=== PATIENT | female | born 1935 | race African-American/Black ===

== ENCOUNTER 2018-01-12 10:06 | Inpatient (IN) | payer MEDICARE ==
[~2018-01-12] VITALS: Ht 188 cm; Wt 83.9 kg
[2018-01-12] MEDS ORDERED: METO1TAB41 PO (10:21)
[2018-01-12] MEDS ORDERED: SODIUM CHLORIDE 0.9% 1,000 ML IV ONE (11:30)
[2018-01-12 11:37] LABS: CLARITY URINE CLEAR (CLEAR); COLOR URINE DARK YELLOW (YELLOW); KETONES URINE 1+ (NEGATIVE); LEUKOCYTE ESTERASE URINE TRACE (NEGATIVE); NITRITE URINE NEGATIVE (NEGATIVE); OCCULT BLOOD URINE 1+ (NEGATIVE); PROTEIN URINE 1+ (NEGATIVE)
[2018-01-12 12:38] LABS: HEMATOCRIT. 37.5 % (36.0-48.0); HEMOGLOBIN. 12.5 g/dL (12.0-16.0); MEAN CORPUSCULAR HEMOGLOBIN 30.3 pg (28.0-32.0); MEAN CORPUSCULAR VOLUME 90.5 fL (81.0-99.0); MEAN PLATELET VOLUME 9.5 fl (7.4-10.4); PLATELET 106 x1000/uL (130-400); RED BLOOD CELL COUNT 4.14 mill/uL (4.2-5.4); RED CELL DISTRIBUTION WIDTH 14.3 % (11.6-14.6)
[2018-01-12 12:44] LABS: CHLORIDE 98 mEq/L (98-107); INR 1.3
[2018-01-12 13:08] LABS: PLATELET ESTIMATE DECREASED
[2018-01-12] MEDS ORDERED: IOHEXOL-350 100 ML BOTTLE ONE (13:40)
[2018-01-12] MEDS: ONDANSETRON HCL 4MG/2ML INJ IV NR ×2 (17:52→18:38)
[2018-01-12 23:10] VITALS: BP 118/78
[2018-01-13] MEDS ORDERED: METO100T16 PO (00:08)
[2018-01-13] MEDS ORDERED: NON FORMULARY PATIENT HOME MED XX SCH (02:00)
[2018-01-13] MEDS ORDERED: ACETAMINOPHEN 325MG TABLET PO PRN (02:00)
[2018-01-13] MEDS ORDERED: MORPHINE SULFATE 4 MG/ML CPJ (NOT FOR IM USE) IV PRN (02:00)
[2018-01-13] MEDS ORDERED: ONDANSETRON HCL 4MG/2ML INJ IV PRN (02:00)
[2018-01-13] MEDS ORDERED: CLONIDINE 0.1MG TABLET PO PRN (02:00)
[2018-01-13] MEDS: ENOXAPARIN 80MG/0.8ML SYR SUBCUT SCH ×2 (03:15→16:55)
[2018-01-13] MEDS: METOPROLOL TARTRATE 50MG TABLET PO SCH ×3 (03:38→22:22)
[2018-01-13 04:00] VITALS: BP 101/73
[2018-01-13 07:02] LABS: BASOPHILS % 0.1 % (0.0-2.0); HEMATOCRIT. 33.5 % (36.0-48.0); HEMOGLOBIN. 11.2 g/dL (12.0-16.0); LYMPHOCYTES % 8.5 % (20.0-50.0); MEAN CORPUSCULAR HEMOGLOBIN 30.3 pg (28.0-32.0); MEAN CORPUSCULAR VOLUME 90.2 fL (81.0-99.0); MEAN PLATELET VOLUME 10.1 fl (7.4-10.4); MONOCYTES % 9.3 % (2.0-8.0); NEUTROPHILS % 82.1 % (40.0-76.0); PLATELET 92 x1000/uL (130-400); RED BLOOD CELL COUNT 3.71 mill/uL (4.2-5.4); RED CELL DISTRIBUTION WIDTH 14.2 % (11.6-14.6)
[2018-01-13 08:00] VITALS: BP 97/71
[2018-01-13 09:43] LABS: CHLORIDE 103 mEq/L (98-107)
[2018-01-13 12:00] VITALS: BP 101/68
[2018-01-13 16:00] VITALS: BP 118/79
[2018-01-13 20:00] VITALS: BP 99/66
[2018-01-14] VITALS (7 sets, daily range): BP systolic 92–130; BP diastolic 60–82
[2018-01-14] MEDS: ENOXAPARIN 80MG/0.8ML SYR SUBCUT SCH ×2 (06:00→18:00)
[2018-01-14 07:43] LABS: HEMATOCRIT. 36.9 % (36.0-48.0); HEMOGLOBIN. 12.4 g/dL (12.0-16.0); MEAN CORPUSCULAR HEMOGLOBIN 30.3 pg (28.0-32.0); MEAN CORPUSCULAR VOLUME 89.9 fL (81.0-99.0); MEAN PLATELET VOLUME 10.5 fl (7.4-10.4); PLATELET 107 x1000/uL (130-400); RED CELL DISTRIBUTION WIDTH 13.9 % (11.6-14.6)
[2018-01-14] MEDS: METOPROLOL TARTRATE 50MG TABLET PO SCH ×2 (08:42→22:03)
[2018-01-14 08:59] LABS: CHLORIDE 101 mEq/L (98-107)
[2018-01-14] MEDS ORDERED: POTASSIUM CHLORIDE 20MEQ TABLET SR PO NR (10:30)
[2018-01-14] MEDS ORDERED: VERAPAMIL HCL 2.5 MG/1 ML 2ML VIAL IV PRN (10:30)
[2018-01-14 13:09] LABS: PLATELET ESTIMATE SLIGHTLY DECREASED
[2018-01-14] MEDS: DILTIAZEM HCL 30MG TABLET PO SCH ×2 (18:19→22:00)
[2018-01-14] MEDS ORDERED: MAGNESIUM 2 G PREMIX 50 ML IV NR (20:00)
[2018-01-15] VITALS (7 sets, daily range): BP systolic 106–124; BP diastolic 64–86
[2018-01-15 06:17] LABS: HEMATOCRIT. 34.8 % (36.0-48.0); HEMOGLOBIN. 11.5 g/dL (12.0-16.0); MEAN CORPUSCULAR HEMOGLOBIN 29.5 pg (28.0-32.0); MEAN CORPUSCULAR VOLUME 89.7 fL (81.0-99.0); MEAN PLATELET VOLUME 10.3 fl (7.4-10.4); PLATELET 110 x1000/uL (130-400); RED BLOOD CELL COUNT 3.88 mill/uL (4.2-5.4); RED CELL DISTRIBUTION WIDTH 14.3 % (11.6-14.6)
[2018-01-15] MEDS: DILTIAZEM HCL 30MG TABLET PO SCH ×3 (06:30→17:07)
[2018-01-15] MEDS: ENOXAPARIN 80MG/0.8ML SYR SUBCUT SCH ×2 (06:30→17:08)
[2018-01-15 07:32] LABS: CHLORIDE 104 mEq/L (98-107)
[2018-01-15] MEDS: METOPROLOL TARTRATE 50MG TABLET PO SCH ×2 (08:23→22:00)
[2018-01-15 08:28] LABS: HDL CHOLESTEROL 46 mg/dL (40-59); LDL CHOLESTEROL 74 mg/dL (5-100)
[2018-01-15 09:46] LABS: PLATELET ESTIMATE DECREASED
[2018-01-15 11:45] LABS: *AMPHETAMINES SCREEN URINE NEGATIVE (NEGATIVE); *BARBITURATES SCREEN URINE NEGATIVE (NEGATIVE); *BENZODIAZEPINES SCREEN URINE NEGATIVE (NEGATIVE); *COCAINE SCREEN URINE NEGATIVE (NEGATIVE)
[2018-01-15 11:46] LABS: CANNABINOID URINE SCREEN NEGATIVE (NEGATIVE); METHADONE URINE SCREEN NEGATIVE (NEGATIVE); OPIATES URINE SCREEN NEGATIVE (NEGATIVE); PHENCYCLIDINE URINE SCREEN NEGATIVE (NEGATIVE)
[2018-01-16] VITALS: BP 100/75
[2018-01-16 01:39] LABS: VITAMIN B12 SERUM 1043 pg/mL (211-911)
[2018-01-16 04:00] VITALS: BP 108/65
[2018-01-16 07:00] VITALS: BP 128/95
[2018-01-16] MEDS: APIXABAN 5 MG TABLET PO SCH ×2 (07:14→18:16)
[2018-01-16] MEDS: DILTIAZEM HCL 30MG TABLET PO SCH ×3 (07:14→12:03)
[2018-01-16] MEDS: METOPROLOL TARTRATE 50MG TABLET PO SCH ×2 (08:58→21:59)
[2018-01-16 10:35] LABS: CHLORIDE 105 mEq/L (98-107)
[2018-01-16 10:36] LABS: HEMATOCRIT. 36.6 % (36.0-48.0); HEMOGLOBIN. 12.2 g/dL (12.0-16.0); MEAN CORPUSCULAR HEMOGLOBIN 30.2 pg (28.0-32.0); MEAN CORPUSCULAR VOLUME 90.5 fL (81.0-99.0); MEAN PLATELET VOLUME 10.1 fl (7.4-10.4); PLATELET 130 x1000/uL (130-400); RED BLOOD CELL COUNT 4.04 mill/uL (4.2-5.4); RED CELL DISTRIBUTION WIDTH 13.9 % (11.6-14.6)
[2018-01-16 12:00] VITALS: BP 126/86
[2018-01-16 12:57] LABS: PLATELET ESTIMATE NORMAL
[2018-01-16 13:05] LABS: HEPATITIS B SURFACE ANTIGEN NEGATIVE
[2018-01-16 13:35] LABS: HEPATITIS A AB IGM NEGATIVE (NEGATIVE)
[2018-01-16] MEDS: DILTIAZEM HCL 120MG CAPSULE CD 24HR PO SCH (14:26)
[2018-01-16 16:00] VITALS: BP 130/89
[2018-01-16 20:00] VITALS: BP 123/69
[2018-01-17] VITALS: BP 133/86
[2018-01-17 04:00] VITALS: BP 143/88
[2018-01-17] MEDS: APIXABAN 5 MG TABLET PO SCH (05:35)
[2018-01-17 08:00] VITALS: BP 135/96
[2018-01-17] MEDS: DILTIAZEM HCL 120MG CAPSULE CD 24HR PO SCH (08:43)
[2018-01-17] MEDS: METOPROLOL TARTRATE 50MG TABLET PO SCH (08:43)
[2018-01-17 11:42] VITALS: BP 130/60
[2018-01-18 19:07] LABS: HLA CLASS 1 ANTIBODY Negative (Negative); IIb/IIIa ANTIBODY Negative (Negative); Ia/IIa ANTIBODY Negative (Negative); Ib/IX ANTIBODY Negative (Negative)
== END 2018-01-17 13:31 | disposition home or self-care (01) | DRG 445 ==
LOC: ER 10:06 → 7WST 17:54 → EDBEDREQ 18:01 → ENRESERV 20:27
PROVIDERS: ADMIT Internal Medicine; ATTEND Internal Medicine
DX: K80.00 Calculus of gallbladder with acute cholecystitis without obstruction (principal); N39.0 Urinary tract infection, site not specified; I47.1 Supraventricular tachycardia; I48.1 Persistent atrial fibrillation; K52.9 Noninfective gastroenteritis and colitis, unspecified; K76.0 Fatty (change of) liver, not elsewhere classified; I10 Essential (primary) hypertension; D69.6 Thrombocytopenia, unspecified; I48.2 Chronic atrial fibrillation; D64.9 Anemia, unspecified; E55.9 Vitamin D deficiency, unspecified; F32.9 Major depressive disorder, single episode, unspecified; F40.240 Claustrophobia; I08.1 Rheumatic disorders of both mitral and tricuspid valves; I27.20 Pulmonary hypertension, unspecified; Z53.29 Procedure and treatment not carried out because of patient's decision for other reasons; Z82.49 Family history of ischemic heart disease and other diseases of the circulatory system
CPT/HCPCS: 36415; 71275; 74174; 76705; 80048; 80061; 80076; 80305; 82248; 82607; 82746; 83735; 83880; 84443; 84484; 85651; 86022; 86705; 86709; 86803; 87340; 93005; 93306; 97162; 99285; J1650; J2405; J3475; J7030; J7040; Q9967

== ENCOUNTER 2018-01-31 19:38 | Emergency (ER) | payer MEDICARE ==
[~2018-01-31] VITALS: Ht 188 cm; Wt 77.0 kg
[~2018-01-31 19:38] MED LIST: METO100T16 PO
[2018-01-31 23:22] LABS: CLARITY URINE CLEAR (CLEAR); COLOR URINE YELLOW (YELLOW); KETONES URINE NEGATIVE (NEGATIVE); LEUKOCYTE ESTERASE URINE NEGATIVE (NEGATIVE); NITRITE URINE NEGATIVE (NEGATIVE); OCCULT BLOOD URINE NEGATIVE (NEGATIVE); PROTEIN URINE NEGATIVE (NEGATIVE); SPECIFIC GRAVITY URINE 1.015 (1.005-1.030)
[2018-02-01] MEDS ORDERED: ONDANSETRON HCL 4MG/2ML INJ IV STA (01:38)
[2018-02-01] MEDS ORDERED: MORPHINE SULFATE 4 MG/ML CPJ (NOT FOR IM USE) IV STA (01:38)
[2018-02-01] MEDS ORDERED: SODIUM CHLORIDE 0.9% 1,000 ML IV ONE (01:38)
[2018-02-01 02:50] LABS: BASOPHILS % 0.2 % (0.0-2.0); CHLORIDE 100 mEq/L (98-107); EOSINOPHILS % 0.1 % (0.0-5.0); HEMATOCRIT. 33.7 % (36.0-48.0); HEMOGLOBIN. 11.3 g/dL (12.0-16.0); LYMPHOCYTES % 13.7 % (20.0-50.0); MEAN CORPUSCULAR VOLUME 89.3 fL (81.0-99.0); MONOCYTES % 10.2 % (2.0-8.0); NEUTROPHILS % 75.8 % (40.0-76.0); PLATELET 240 x1000/uL (130-400); RED BLOOD CELL COUNT 3.77 mill/uL (4.2-5.4); RED CELL DISTRIBUTION WIDTH 13.3 % (11.6-14.6)
[2018-02-01 02:52] LABS: INR 1.2; PROTHROMBIN TIME 12.1 sec (9.1-11.1)
[2018-02-01 06:37] VITALS: BP 121/75
== END 2018-02-01 07:10 | disposition home or self-care (01) ==
LOC: ER 19:38
DX: R10.11 Right upper quadrant pain (principal); I10 Essential (primary) hypertension; I48.91 Unspecified atrial fibrillation; Z79.899 Other long term (current) drug therapy
CPT/HCPCS: 36415; 71045; 76705; 80053; 81003; 83690; 83880; 84484; 85025; 85610; 93005; 96374; 96375; 99284; J2270; J2405; J7030

== ENCOUNTER → 2018-02-04 | Outpatient (CLI) | payer MEDICARE, BC ==
[~2018-02-04] MED LIST changes: +IOHEXOL-300 100 ML BOTTLE ONE
== END | disposition home or self-care (01) ==
LOC: CT 08:28
PROVIDERS: ATTEND Internal Medicine
DX: K80.20 Calculus of gallbladder without cholecystitis without obstruction (principal); J98.11 Atelectasis; N28.1 Cyst of kidney, acquired
CPT/HCPCS: 74178; Q9967

== ENCOUNTER 2018-02-24 07:44 | Day surgery (SDC) | payer MEDICARE, BC ==
[2018-02-24] VITALS (12 sets, daily range): BP systolic 116–165; BP diastolic 75–119
[~2018-02-24] VITALS: Ht 33 cm; Wt 0.5 kg
[~2018-02-24 07:44] MED LIST changes: -IOHEXOL-300 100 ML BOTTLE ONE
[2018-02-24] MEDS ORDERED: FENTANYL CITRATE/PF 50MCG/ML 2ML VIAL ONE (08:22)
[2018-02-24] MEDS ORDERED: FENTANYL CITRATE/PF 50MCG/ML 2ML VIAL IV ONE (09:45)
[2018-02-24] MEDS ORDERED: HYDROCODONE/ACETAMINOPHEN 5/325MG TABLET PO PRN (09:45)
[2018-02-24] MEDS ORDERED: APIX5TAB PO (10:42)
[2018-02-24] MEDS ORDERED: DILT120T13 PO (10:42)
[2018-02-24] MEDS ORDERED: METO-385 PO (10:42)
[2018-02-24 13:15] LABS: HEMATOCRIT 30.4 % (36.0-48.0)
== END 2018-02-24 14:15 | disposition home or self-care (01) ==
LOC: RAD 07:44
PROVIDERS: ATTEND Internal Medicine
DX: C78.7 Secondary malignant neoplasm of liver and intrahepatic bile duct (principal); C18.9 Malignant neoplasm of colon, unspecified; I10 Essential (primary) hypertension; E55.9 Vitamin D deficiency, unspecified; F33.2 Major depressive disorder, recurrent severe without psychotic features
CPT/HCPCS: 36415; 47000; 76942; 85014; 85018; 88307; J3010; J7050